=== PATIENT | male | born 1945 | race Caucasian/White ===

== ENCOUNTER 2018-01-18 21:15 | Observation (INO) | payer MEDICARE, OTHER ==
[2018-01-18 22:18] LABS: Troponin I Less than 0.010 ng/mL (< 0.028)
[2018-01-19] MEDS ORDERED: Ondansetron HCl/PF 4 MG/2 ML Vial IVP PRN (00:28)
[2018-01-19] MEDS ORDERED: Ondansetron ODT 4 MG TAB SL PRN (00:28)
[2018-01-19] MEDS ORDERED: Acetaminophen 325 MG TAB PO PRN ×2 (00:28→03:35)
[2018-01-19 00:41] VITALS: BMI 38.9
[2018-01-19 01:18] LABS: Troponin I Less than 0.010 ng/mL (< 0.028)
[2018-01-19] MEDS ORDERED: Nitroglycerin 0.4 MG TAB (25 Tab Bottle) PO PRN (03:35)
[2018-01-19] MEDS ORDERED: Milk Of Magnesia 30 ML UDCUP PO PRN (03:35)
[2018-01-19] MEDS ORDERED: Dextrose 5% in Water 1,000 ML IV PRN (03:35)
[2018-01-19] MEDS ORDERED: Dextrose 50% Abboject 50 ML SYRINGE SLOW IVP PRN (03:35)
[2018-01-19] MEDS ORDERED: clonazePAM 0.5 MG TAB PO PRN (03:35)
[2018-01-19] MEDS ORDERED: Ondansetron ODT 4 MG TAB PO PRN (03:35)
[2018-01-19] MEDS ORDERED: HumaLOG 300 UNITS/3 ML VIAL SC PRN (03:35)
[2018-01-19] MEDS ORDERED: Mag-Al 1200 mg/1200 mg/30 ML UDCUP PO PRN (03:35)
--- NOTE | 2018-01-19 03:55 | HP ---
PRIMARY CARE PHYSICIAN: Dr. Benito Carter at the [facility]. CHIEF COMPLAINT: Chest pain. HISTORY OF PRESENT ILLNESS: Mr. Man is a pleasant 72-year-old gentleman that has a history of hyp ertension, diabetes, and atrial fibrillation. He was in his usual state of health until about 4:00 p .m. He says that he was basically sitting in a chair with feet up when he began having pain in the l eft side of his chest. He says it radiated into his left arm. He rated it about a 5/10. It lasted about an hour and went away spontaneously. He did not have any associated symptoms such as shortness of breath, nausea, vomiting, or diaphoresis. He went to the emergency room in [place], where b y the time he got there, the pain had resolved. However, due to his multiple risk factors he was tra nsferred to our facility for further evaluation. The plan was for him to undergo a stress test. How ever, in further questioning, it was discovered that the patient has already had a stress test about 2 weeks ago at the [facility] in [place] and he says he does not have the results, but they were supposed to s end the results to Dr. Carter. He says that the stress test was not due to any symptoms. It was j ust basically routine and he is not aware of the results. When asked if he tried taking any nitrogly cerin earlier, he says he did not really think about it and he says that the nitroglycerin may actual ly be old. He has had it for at least a year or more. REVIEW OF SYSTEMS: Constitutional: There have been no fevers, chills, no night sweats, no weight lo ss. HEENT: No headaches, no dizziness, no visual changes, no sore throat, rhinorrhea, neck pain, no adenopathy. Pulmonary: No hemoptysis, no cough, no wheezing. Cardiovascular: As stated in the hi story of present illness. Gastrointestinal: No abdominal pain, no nausea, no vomiting, no change in bowels. Genitourinary: No urinary frequency, hematuria, no hesitancy. Neurologic: No focal weakn ess, numbness, no seizures. Psychiatric: No symptoms of anxiety or depression. Skin and Integument : No skin changes. No rash. PAST MEDICAL HISTORY: Significant for hypertension, diabetes mellitus, chronic atrial fibrillation, history of previous hemorrhagic stroke. PAST SURGICAL HISTORY: He has had bilateral carpal tunnel surgery, right foot and back surgery and l ithotripsy. ALLERGIES: No known drug allergies. SOCIAL HISTORY: He is , has two children. He drinks socially. He is a nonsmoker. FAMILY HISTORY: No history of any heritable diseases. MEDICATIONS: Include multivitamin once a day, Protonix 40 mg daily, K-Dur 20 mEq daily, Effexor 75 m g daily, Klonopin 0.5 mg twice a day as needed, metformin 1000 mg twice a day, allopurinol 300 mg erika ly, Lipitor 20 mg at bedtime, multivitamin 1000 mg daily, Flexeril 5 mg twice a day, digoxin 0.25 mg daily, diltiazem 360 mg daily, iron sulfate 325 mg daily, Lasix 40 mg daily, gabapentin 300 mg daily, metoprolol 50 mg twice a day, and Lantus insulin 70 units at bedtime. PHYSICAL EXAMINATION: GENERAL: He is alert and oriented. He appears to be in no acute distress. VITAL SIGNS: Blood pressure was 159/73, heart rate 68, respiratory rate of 20, temperature is 97.5. HEENT: Pupils are equal, round, and reactive. Extraocular muscles are intact. His sclerae anicteri c. Throat: There is no erythema, no exudates. NECK: No adenopathy, no bruits. LUNGS: Clear. No wheezing, no rales. CARDIOVASCULAR: He has a normal S1 and S2. I did not appreciate any S3 or S4. No murmurs, clicks, or rubs. ABDOMEN: Obese, it is soft. There is some mild diffuse tenderness. There is no rebound or guarding . EXTREMITIES: He has got chronic venous stasis changes, some nonpitting edema, palpable dorsalis pedi s pulses. NEUROLOGICALLY: The exam is nonfocal. LABORATORY DATA: EKG was atrial fibrillation, the rate was [address] wave changes. [facility] te blood cell count 6.8, hemoglobin 14.3, hematocrit 43.8, platelet count 142. D-dimer was 0.36. So dium 138, potassium 4.7, chloride is 100, CO2 is 25, BUN of 21, creatinine 1.61, glucose is 111. ASSESSMENT AND PLAN: This is a pleasant 72-year-old gentleman who presented to the emergency room wi th chest pain. He has significant risk factors for coronary artery disease. His initial troponin is negative. The original plan was to rule the patient out and get a stress test to further stratify h is risks for coronary artery disease; however, the patient has recently had a stress test and therefo re we will not repeat this at this time. We will attempt to get the results from the [facility]; however, to [place] is the holiday and it is a possibility that we may not be able to obtain these results. If th is is the case, then if the patient has ruled out and is chest pain free tomorrow or later on today, then likely he can be safely discharged home with a new prescription for Nitrostat, which he can use in the event that he has chest pain in the future and consider a low-dose aspirin along with his othe r medications. Until which time, he can follow up with his primary care physician and get the result s of his stress test. Otherwise, we will continue his usual medications for hypertension and diabete s mellitus as well as sliding scale insulin.
[2018-01-19 05:02] LABS: Troponin I Less than 0.010 ng/mL (< 0.028)
[2018-01-19 06:37] LABS: Troponin I Less than 0.010 ng/mL (< 0.028)
[2018-01-19] MEDS ORDERED: Furosemide 40 MG TAB PO SCH (07:30)
[2018-01-19] MEDS ORDERED: Potassium Chloride 20 MEQ TAB PO SCH (08:00)
[2018-01-19] MEDS ORDERED: metFORMIN 500 MG TAB PO SCH (08:00)
[2018-01-19] MEDS ORDERED: Ferrous Sulfate 325 MG TAB PO SCH (08:00)
[2018-01-19] MEDS ORDERED: Cyclobenzaprine 10 MG TAB PO SCH (09:00)
[2018-01-19] MEDS ORDERED: Cyanocobalamin (Vitamin B-12) 1,000 MCG TAB PO SCH (09:00)
[2018-01-19] MEDS ORDERED: Digoxin 0.25 MG TAB PO SCH (09:00)
[2018-01-19] MEDS ORDERED: Gabapentin 300 MG CAP PO SCH (09:00)
[2018-01-19] MEDS ORDERED: Docusate 100 MG CAP PO SCH (09:00)
[2018-01-19] MEDS ORDERED: Venlafaxine HCl XR 75 MG CAP PO SCH (09:00)
[2018-01-19] MEDS ORDERED: Metoprolol Tartrate 50 MG TAB PO SCH (09:00)
[2018-01-19] MEDS ORDERED: Allopurinol 300 MG TAB PO SCH (09:00)
[2018-01-19] MEDS ORDERED: Multivitamin W/ Minerals 1 TAB PO SCH (09:00)
[2018-01-19 10:00] LABS: Troponin I Less than 0.010 ng/mL (< 0.028)
[2018-01-19 11:38] VITALS: BP 126/74; TEMP 97.5
[2018-01-19] MEDS ORDERED: Atorvastatin Calcium 20 MG TAB PO SCH (21:00)
[2018-01-19] MEDS ORDERED: Insulin Glargine 70 UNITS in Pre-Filled Syringe 1 EACH SC SCH (21:00)
--- NOTE | 2018-01-19 23:12 | DIS ---
DATE OF ADMISSION: 01/19/2018 DATE OF DISCHARGE: 01/19/2018 DISCHARGE DIAGNOSES: 1. Chest pain. 2. Hypertension. 3. Diabetes mellitus. 4. Chronic atrial fibrillation. 5. History of cerebrovascular accident. HISTORY: This patient is a 72-year-old male with the above-mentioned chronic medical conditions, who presented via the emergency department with the complaint of chest pain. The patient reported that the pain lasted for approximately 30 minutes and had some radiation to the left shoulder area. He di d take a nitroglycerin, but believes it is actually quite old. The patient initially presented to [facility] Emergency Department. There, the patient was pain free and had a negative workup. Ho wever, the patient was transferred to this facility, so that he might undergo stress testing. On arr ival, the patient was asymptomatic. He indicated that he had recently had a stress test performed 2 weeks prior at the [facility] in [place]. He did not hear any report on results. HOSPITAL COURSE: The patient was placed in observation. He continued on telemetry and had serial ca rdiac isoenzymes which were negative. He remained asymptomatic throughout. We were unable to obtain his stress test results from the [facility] because of the holiday in the fact that the Medical Records Depa rtment there was closed. Therefore, had the patient get up and ambulate the hallways. He did well w ith that and had no recurrent symptoms. His granddaughter who lives very close to him in fact next d oor, reported that he had had similar symptoms in the past and they typically been quite stable, typi natalie resolved on their own and had not prompted any further aggressive followup. The patient did no t have a PCP established in the [place] area. He intended to follow up with the same physician that his granddaughter was seen. Given the fact that his workup was negative and he had recently had the negative stress test and he remained asymptomatic during his stay. We have discussed the possib ilities of the various options. That included keeping the patient for another day to try to [facility] or repeating the stress test here verus waiting the patient discharged to [facility] ow up with PCP in [place]. Ultimately, we agreed that the patient would be comfortable discharg ing to home with a new prescription for sublingual nitroglycerin to use p.r.n. He can return to the emergency department as needed. DISCHARGE DISPOSITION: The patient will be discharged to home. DISCHARGE MEDICATIONS: He will continue with his usual home medications that include Flomax 0.4 mg q . day, omeprazole 20 mg q. day, digoxin 0.125 q. day, Venlafaxine 150 q. day, insulin glargine 70 uni ts at bedtime, Lopressor 50 b.i.d., gabapentin 300 q. day, Lasix 400 mg p.o. q. day, ferrous sulfate 325 p.o. q. day, diltiazem 360 mg p.o. q. day, Flexeril 5 mg b.i.d., B12 of 1000 mcg p.o. q. day, Lip itor 20 mg at bedtime, allopurinol 300 q. day, Glucophage 1000 mg b.i.d., Klonopin 0.5 mg b.i.d. p.r. n., potassium 20 mEq q. day, multivitamin 1 p.o. q. day, and will additionally have a prescription fo r nitroglycerin 0.4 mg p.o. or sublingual every 5 minutes p.r.n. chest pain. DISCHARGE INSTRUCTIONS: He is to remain on a diabetic heart healthy diet. His activity level is to be modest. He is to establish with his PCP in the [place] area as soon as possible and [facility] he can ascertain results of his stress test. Based on that, they will likely give him guidance for any necessary followup.
== END 2018-01-19 16:22 | disposition home or self-care (01) ==
LOC: ERS 21:15 → 2SW 23:14
PROVIDERS: ADMIT Internal Medicine; ATTEND Internal Medicine
DX: R07.9 Chest pain, unspecified (principal); I10 Essential (primary) hypertension; E11.9 Type 2 diabetes mellitus without complications; I48.2 Chronic atrial fibrillation; Z86.73 Personal history of transient ischemic attack (TIA), and cerebral infarction without residual deficits; Z79.4 Long term (current) use of insulin; Z79.899 Other long term (current) drug therapy
CPT/HCPCS: 36415; 36416; 84484; 93005; 94760; G0378

== ENCOUNTER 2018-03-12 21:35 | Inpatient (IN) | payer MEDICARE, OTHER ==
[~2018-03-12 21:35] MED LIST: ISOVUE-370 76%-LOCM 1 ML ONE
[2018-03-12 22:17] LABS: #Eosinphils 0.1 thou/uL (0.0-0.7); #Lymphocytes 0.8 thou/uL (1.20-3.40); #Monocytes 0.4 thou/uL (0.11-0.59); #Neutrophils 4.7 thou/uL (1.40-6.50); %Basophils 0.1 % (0.0-1.0); %Eosinophils 1.4 % (0.0-10.0); %Lymphocytes 13.8 % (21.0-51.0); %Monocytes 6.7 % (0.0-10.0); Hemoglobin 12.1 g/dL (14.0-18.0); Mean Corpuscular HGB CONC 33.7 g/dL (32.0-36.0); Mean Corpuscular Hemoglobin 30.9 pg (27.0-31.0); Mean Corpuscular Volume 91.7 fL (78.0-98.0); Mean Platelet Volume 7.3 fL (7.4-10.4); Platelet Count 125 thou/uL (130-400); RBC Distribution Width 14.7 % (11.5-14.5); Red Blood Cell (RBC) Count 3.92 mill/uL (4.70-6.10)
[2018-03-12 22:40] LABS: ALT (SGPT) 33 U/L (8-55); AST (SGOT) 35 U/L (5-34); Albumin 3.7 g/dL (3.4-4.8); Alkaline Phosphatase 132 U/L (40-150); Anion Gap 18 mmol/L (10-20); BUN (Urea Nitrogen) 15 mg/dL (8.4-25.7); CK (CPK) 59 U/L (30-200); Calc. Creatinine Clearance 0 mL/min (70-130); Calcium 9.6 mg/dL (7.8-10.44); Carbon Dioxide 22 mmol/L (23-31); Chloride 103 mmol/L (98-107); Estimated GFR-MDRD 47; Globulin 3.2 g/dL (2.4-3.5); Glucose 238 mg/dL (80-115); Lipase 28 U/L (8-78); Potassium 4.8 mmol/L (3.5-5.1); Protein, Total 6.9 g/dL (5.8-8.1); Sodium 138 mmol/L (136-145)
[2018-03-12 22:41] LABS: CKMB 3.6 ng/mL (0-6.6); Troponin I Less than 0.010 ng/mL (< 0.028)
--- NOTE | 2018-03-12 22:47 | RAD ---
PA AND LATERAL CHEST X-RAY 03/12/18 HISTORY: Chest pain for two days which has worsened over the last few hours. COMPARISON: 01/18/18. FINDINGS: The cardiac silhouette and pulmonary vasculature are within normal limits. Lungs are clear. Degenerat gurmeet changes are again seen in the spine with calcification of the anterior longitudinal ligament pres ent. IMPRESSION: No acute cardiopulmonary process. POS: [facility]
[2018-03-12 22:48] LABS: Bilirubin, Total 0.7 mg/dL (0.2-1.2)
--- NOTE | 2018-03-12 23:58 | RAD ---
THREE VIEWS RIGHT FOOT: 03/12/18 HISTORY: Right foot pain after injury. 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 No fracture or dislocation is seen. Posterior and plantar calcanea l enthesophytes are seen. Subcutaneous soft tissue swelling is seen dorsal to the foot primarily the forefoot which was not present on the prior exam. Vascular calcifications are seen at the ankle. Calc ifications are seen adjacent to the plantar aspect of the fifth metatarsal and overlying the region o f the plantar aponeurosis. This is stable from prior exam. There is prominent osteoarthritis involvin g the metatarsophalangeal joints of the fourth and fifth toes and to a lesser extent first metatarsop halangeal joint. IMPRESSION: 1. Stable chronic findings right foot. No acute osseous abnormality is seen. 2. Subcutaneous soft tissue swelling at the dorsal aspect of the foot. POS: [facility]
[2018-03-13] MEDS ORDERED: Piperacillin/Tazobactam 4.5 GM VIAL ONE (00:59)
[2018-03-13 03:01] LABS: Lactic Acid 2.5 mmol/L (0.5-2.2)
[2018-03-13 03:44] LABS: Troponin I Less than 0.010 ng/mL (< 0.028)
[2018-03-13] MEDS ORDERED: Ondansetron HCl/PF 4 MG/2 ML Vial IVP PRN (04:43)
[2018-03-13] MEDS ORDERED: Acetaminophen 325 MG TAB PO PRN (04:43)
[2018-03-13] MEDS ORDERED: Sodium Chloride 0.9% 1,000 ML IV SCH (04:43)
[2018-03-13] MEDS ORDERED: Ondansetron ODT 4 MG TAB SL PRN (04:43)
[2018-03-13 05:55] VITALS: BMI 39.5
[2018-03-13] MEDS ORDERED: Nitroglycerin 2% Ointment 1 INCH/1 GM Packet TOP SCH (06:15)
[2018-03-13 06:37] LABS: Troponin I 0.012 ng/mL (< 0.028)
[2018-03-13] MEDS ORDERED: Piperacillin/Tazobactam 4.5 GM in Sodium Chloride 0.9% 100 ML IVPB SCH (09:00)
--- NOTE | 2018-03-13 10:08 | ULT ---
PRELIMINARY REPORT/[facility]/EMERGENTY AFTER-HOURS PROCEDURE US Duplex Right Lower Extremity Veins CLINICAL HISTORY: 72 years old, male; Pain and signs and symptoms; Edema, localized; Lower extremity, right; Toes; Nilda ent HX: Rt foot pain/edema/redness after injury to toe. TECHNIQUE: Real-time duplex ultrasound scan of the right lower extremity veins integrating B-mode two dimensiona l vascular structure, Doppler spectral analysis, color flow Doppler imaging and compression. COMPARISON: No relevant prior studies available. FINDINGS: No visible clot in the included veins. The included veins appear normally compressible. Duplex Doppler evaluation demonstrates flow in the evaluated veins. IMPRESSION: No evidence of acute right lower extremity DVT. Thank you for allowing us to participate in the care of your patient. Dictated and Authenticated by: Hugo Hughes MD 03/13/2018 1:29 AM Central Time ([place] & [place]) FINAL REPORT RIGHT LOWER EXTREMITY VENOUS DOPPLER: Date: 03/12/18 HISTORY: Lower extremity edema. Swelling. COMPARISON: None. TECHNIQUE: Real-time Alva scale and color Doppler with spectral analysis of the right lower extremity venous sy stem was performed. The common femoral, femoral, proximal portions of greater saphenous and deep femo ral veins, as well as the popliteal and posterior tibial veins were interrogated. Normal flow, augmentation, and compression. IMPRESSION: No deep venous thrombosis. Findings and impression are concordant with the preliminary report by [facility]. POS: [facility]
--- NOTE | 2018-03-13 10:13 | CT ---
PRELIMINARY REPORT/[facility]/EMERGENTY AFTER-HOURS PROCEDURE CT Angiography Chest With Intravenous Contrast CLINICAL HISTORY: 72 years old, male; Pain; Chest pain; Midsternal; TECHNIQUE: Axial computed tomographic angiography images of the chest with intravenous contrast using pulmonary embolism protocol. MIP reconstructed images were created and reviewed. COMPARISON: No relevant prior studies available. FINDINGS: Pulmonary arteries: No evidence for pulmonary embolism Aorta: No acute findings. No thoracic aortic aneurysm. Lungs: Elevated right hemidiaphragm. Mild dependent atelectasis in the lower lobes dorsally. No pneum onia, mass, or edema. Pleural space: No acute findings. No significant effusion. No pneumothorax. Heart: No acute findings. No cardiomegaly. Trace pericardial effusion. No evidence of RV dysfunction. Bones/joints: Chronic degenerative spinal changes without acute fracture or dislocation. Soft tissues: No acute findings. Lymph nodes: No acute findings. No enlarged lymph nodes. Upper abdomen:. Liver is enlarged at 21 cm and demonstrates lobulated cirrhotic morphology. 2 cm live r cyst left lobe. 6 mm low density hepatic lesion on series 2 image 80, too small to characterize but likely cysts as well. Spleen enlarged at 17 cm. IMPRESSION: No pulmonary embolism. No pneumonia, lung mass, or edema. Hepatosplenomegaly with cirrhosis. Thank you for allowing us to participate in the care of your patient. Dictated and Authenticated by: Tracie De Jesus MD 03/13/2018 1:46 AM Central Time ([place] & [place]) FINAL REPORT CT ANGIOGRAM CHEST WITH CONTRAST: Date: 03/12/18 HISTORY: Chest pain. COMPARISON: Chest radiograph from prior day. TECHNIQUE: CT angiogram chest performed after the intravenous administration of contrast. 3D rendering provided. FINDINGS/IMPRESSION: Findings and impression are concordant with the preliminary report by [facility]. POS: [facility]
[2018-03-13] MEDS: Nitroglycerin 2% Ointment 1 INCH/1 GM Packet TOP SCH ×3 (12:22→23:18)
[2018-03-13] MEDS ORDERED: Calcium Carbonate 500 MG ChewTAB PO PRN (14:55)
[2018-03-13] MEDS ORDERED: Dextrose 5% in Water 1,000 ML IV PRN (14:55)
[2018-03-13] MEDS ORDERED: HumaLOG 300 UNITS/3 ML VIAL SC PRN (14:55)
[2018-03-13] MEDS ORDERED: Dextrose 50% Abboject 50 ML SYRINGE SLOW IVP PRN (14:55)
[2018-03-13] MEDS ORDERED: Vancomycin HCl 1 GM in Premix Bag 1 BAG IVPB SCH (15:00)
[2018-03-13] MEDS ORDERED: Pharmacy to Dose UNASYN IVPB PRN (15:00)
[2018-03-13] MEDS: Heparin 5,000 UNITS/ML VIAL SC SCH ×2 (15:35→21:23)
[2018-03-13] MEDS: Clindamycin/D5W 600 MG in Premix Bag 1 BAG IVPB SCH ×2 (16:07→21:37)
[2018-03-13] MEDS: Ampicillin/Sulbactam 3 GM in Sodium Chloride 0.9% 100 ML IVPB SCH ×2 (17:04→22:11)
[2018-03-13] MEDS: Famotidine/PF 20 mg/2ml Vial SLOW IVP SCH (21:20)
[2018-03-14] MEDS: Mag-Al 1200 mg/1200 mg/30 ML UDCUP PO PRN ×3 (01:48→23:39)
[2018-03-14] MEDS: Clindamycin/D5W 600 MG in Premix Bag 1 BAG IVPB SCH ×2 (04:47→08:52)
[2018-03-14] MEDS ORDERED: Clindamycin/D5W 600 mg/50 ml Premix Bag ONE (04:57)
[2018-03-14 05:02] LABS: #Eosinphils 0.1 thou/uL (0.0-0.7); #Lymphocytes 0.8 thou/uL (1.20-3.40); #Monocytes 0.3 thou/uL (0.11-0.59); #Neutrophils 2.9 thou/uL (1.40-6.50); %Basophils 0.6 % (0.0-1.0); %Eosinophils 2.1 % (0.0-10.0); %Lymphocytes 19.5 % (21.0-51.0); %Monocytes 6.8 % (0.0-10.0); Hemoglobin 11.2 g/dL (14.0-18.0); Mean Corpuscular HGB CONC 33.9 g/dL (32.0-36.0); Mean Corpuscular Hemoglobin 30.6 pg (27.0-31.0); Mean Corpuscular Volume 90.1 fL (78.0-98.0); Mean Platelet Volume 7.3 fL (7.4-10.4); Platelet Count 110 thou/uL (130-400); RBC Distribution Width 14.8 % (11.5-14.5); Red Blood Cell (RBC) Count 3.66 mill/uL (4.70-6.10)
[2018-03-14 05:25] LABS: Anion Gap 15 mmol/L (10-20); BUN (Urea Nitrogen) 10 mg/dL (8.4-25.7); Calc. Creatinine Clearance 123 mL/min (70-130); Calcium 9.4 mg/dL (7.8-10.44); Carbon Dioxide 22 mmol/L (23-31); Cardiac Risk 3.7 (Less than 4.5); Chloride 108 mmol/L (98-107); Cholesterol 110 mg/dl (< 200 Desired); Estimated GFR-MDRD 71; Glucose 113 mg/dL (80-115); HDL Cholesterol 30 mg/dL (>60 Neg Risk); LDL Cholesterol, Calculated 60 mg/dL; Potassium 3.9 mmol/L (3.5-5.1); Sodium 141 mmol/L (136-145); Triglycerides 102 mg/dL (Less than 150)
[2018-03-14] MEDS: Ampicillin/Sulbactam 3 GM in Sodium Chloride 0.9% 100 ML IVPB SCH ×2 (05:35→10:26)
[2018-03-14] MEDS: Nitroglycerin 2% Ointment 1 INCH/1 GM Packet TOP SCH ×2 (05:35→11:48)
[2018-03-14] MEDS: Famotidine/PF 20 mg/2ml Vial SLOW IVP SCH (08:52)
[2018-03-14] MEDS: Heparin 5,000 UNITS/ML VIAL SC SCH (08:53)
--- NOTE | 2018-03-14 15:29 | PDOC.PN ---
- Subjective Encounter Start Date: 03/14/18 (f/u chest pain) Encounter Start Time: 15:28 Subjective: Pt reports chest pain with PO - solid and liquids, on a ppi at home -: n/v/abd pain or other changes. Pain in toe - reports he was on keflex and -: clindamycin for 9 days prior to admission - Objective Resuscitation Status: Resuscitation Status FULL:Full Resuscitation Vital Signs & Weight: Vital Signs (12 hours) Temp Pulse Resp BP BP BP Pulse Ox 03/14/18 11:46 98.6 F 91 16 128/65 99 03/14/18 07:46 98.2 F 80 16 97 03/14/18 07:43 98.2 F 80 16 153/70 H 97 03/14/18 03:46 97.9 F 90 19 134/60 95 03/14/18 03:29 97.9 F 101 H 20 150/76 H 98 Weight Admit Weight 291 lb 8 oz Weight 286 lb 6.4 oz I&O: 03/13/18 03/14/18 03/15/18 06:59 06:59 06:59 Intake Total 10 2115 Output Total 300 2600 Balance -290 -485 Result Diagrams: 03/14/18 03:55 03/14/18 03:55 Additional Labs: Accuchecks 03/14/18 03/14/18 03/13/18 10:35 06:09 20:57 POC Glucose 131 H 147 H 189 H 03/13/18 16:34 POC Glucose 236 H EKG Reviewed by me: Yes (tele - a fib 100's) Phys Exam - Physical Examination Constitutional: NAD Respiratory: no wheezing, no rales, no rhonchi, clear to auscultation bilateral Cardiovascular: no significant murmur, irregular Gastrointestinal: soft, non-tender, no distention Musculoskeletal: no edema Neurological: non-focal, moves all 4 limbs Psychiatric: normal affect Deviation from normal: right 2nd toe laceration, with edematous and erythematous toe Dx/Plan (1) Toe infection Code(s): L08.9 - LOCAL INFECTION OF THE SKIN AND SUBCUTANEOUS TISSUE, UNSP Status: Acute (2) Atrial fibrillation Code(s): I48.91 - UNSPECIFIED ATRIAL FIBRILLATION Status: Chronic Qualifiers: Atrial fibrillation type: unspecified Qualified Code(s): I48.91 - Unspecified atrial fibrillation (3) Chest pain Code(s): R07.9 - CHEST PAIN, UNSPECIFIED Status: Acute Qualifiers: Chest pain type: unspecified Qualified Code(s): R07.9 - Chest pain, unspecified (4) DM type 2 (diabetes mellitus, type 2) Status: Chronic Qualifiers: Diabetes mellitus complication status: without complication (5) Dyslipidemia Code(s): E78.5 - HYPERLIPIDEMIA, UNSPECIFIED Status: Chronic (6) HTN (hypertension) Code(s): I10 - ESSENTIAL (PRIMARY) HYPERTENSION Status: Chronic Qualifiers: Hypertension type: essential hypertension Qualified Code(s): I10 - Essential (primary) hypertension (7) Morbid obesity Code(s): E66.01 - MORBID (SEVERE) OBESITY DUE TO EXCESS CALORIES Status: Chronic (8) Pancytopenia Code(s): D61.818 - OTHER PANCYTOPENIA Status: Acute - Plan * chest pain related to PO - start BID PPI and consult GI for consideration of EGD * * toe infectin - pt was on long course of oral abx prior to this admission - will change the unasyn and clindamycin to levaquin for pseudomonas coverage. Wound care managing infection * * reconcilled home meds. * * Hold long acting insulin as blood sugars are controlled. Hold metformin as well * * Pancytopenia - uncertain if new or baseline for patient - monitor. * * dvt prophy & a fib anticoagulation- pt reports hx of hemorrhagic stroke and states he was told no blood thinners at all. Will d/c heparin * gi prophy - not indicated, starting PPI due to chest sx * * code status full * * reviewed plan of care with patient, no questions or further needs at end of eval..
[2018-03-14] MEDS ORDERED: Acetaminophen 325 MG TAB PO PRN (17:34)
[2018-03-14] MEDS: Atorvastatin Calcium 20 MG TAB PO SCH (21:14)
[2018-03-14] MEDS: clonazePAM 0.5 MG TAB PO SCH (21:14)
[2018-03-14] MEDS: Metoprolol Tartrate 100 MG TAB PO SCH (21:15)
--- NOTE | 2018-03-14 21:37 | CON ---
DATE OF CONSULTATION: 03/14/2018 HISTORY OF PRESENT ILLNESS: Patient is a 72-year-old male who presented for chest pain. H e reports whenever he eats or swallows, he has severe chest pain. He underwent an upper endoscopy. He is not sure of the reason why, but he was not having the symptoms. These symptoms one year ago an d it was reportedly normal. He has had this chest pain since yesterday. He says he cannot eat or dr ink anything and it will cause the pain. He has had no vomiting. He denies any weight loss. He den ies any melena or hematochezia. PAST MEDICAL HISTORY: Includes gout, coronary artery disease, congestive heart failure, arrhythmia, atrial fibrillation, not on any anticoagulation because of an intracerebral hemorrhage, diabetes michael itus, gastroesophageal reflux, hypertension, hemorrhagic cerebrovascular accident. PAST SURGICAL HISTORY: Includes carpal tunnel, lithotripsy, foot surgery. SOCIAL HISTORY: He drinks occasionally. Does not smoke. ALLERGIES: No known allergies. MEDICATIONS: Include allopurinol 100 mg p.o. t.i.d., atorvastatin 20 mg 1 p.o. at bedtime, clonazepa m 0.5 mg 1 p.o. b.i.d., vitamin B12 1 p.o. daily, cyclobenzaprine two p.o. every day p.r.n., diltiaze m 360 mg 1 p.o. daily, Feosol 325 one p.o. daily, Lasix 40 mg 1 p.o. daily, gabapentin 300 mg 1 p.o. daily, insulin, metformin 500 mg 1 p.o. b.i.d., metoprolol 25 mg 1 p.o. b.i.d., omeprazole 20 mg 1 p. o. daily, potassium chloride 20 mEq 1 p.o. daily, venlafaxine 75 mg 1 p.o. daily, Keflex 500 mg 1 p.o . t.i.d., clindamycin 300 mg 1 p.o. q.i.d. ALLERGIES: No known allergies. FAMILY HISTORY: Negative for GI or liver disease. REVIEW OF SYSTEMS: CONSTITUTIONAL: No fever, chills, no weight loss. EYES: No blurred vision or d ouble vision. ENT: No sore throat or earaches. CARDIOVASCULAR: No chest pain or palpitation. PUL MONARY: No shortness of breath, cough or wheezing. GASTROINTESTINAL: See above. : No hematuria or dysuria. MUSCULOSKELETAL: No joint pain or muscle weakness. SKIN: No rashes. NEUROLOGIC: No numbness or seizure activity. PHYSICAL EXAMINATION: GENERAL: Shows an obese white male in no acute distress. VITAL SIGNS: Temperature 97.8, pulse 79, respiratory rate 16, blood pressure 139/84. HEENT: Unremarkable. NECK: Supple. CHEST: Clear. CARDIOVASCULAR: Regular rate and rhythm. ABDOMEN: Soft and nontender without organomegaly or masses. Bowel sounds are present and normoactiv e. RECTAL: Deferred. EXTREMITIES: Normal. LABORATORY DATA: Shows white blood cell count 4.0, hemoglobin 11.2, hematocrit 33.0, platelet count 110. Admission chemistry panel showed creatinine 1.49, glucose 239. ASSESSMENT: 1. Odynophagia. 2. Diabetes mellitus. 3. History gastroesophageal reflux disease. 4. Coronary artery disease. RECOMMENDATIONS: 1. EGD tomorrow. 2. Continue proton-pump inhibitor.
--- NOTE | 2018-03-14 22:38 | PDOC.EVN ---
Event Note - Event Note Event Note: H&P RE-DICTATION confirmatioin # [id number]
[2018-03-15 04:17] LABS: Anion Gap 13 mmol/L (10-20); BUN (Urea Nitrogen) 9 mg/dL (8.4-25.7); Calc. Creatinine Clearance 121 mL/min (70-130); Calcium 9.3 mg/dL (7.8-10.44); Carbon Dioxide 23 mmol/L (23-31); Chloride 106 mmol/L (98-107); Estimated GFR-MDRD 71; Glucose 114 mg/dL (80-115); Potassium 3.9 mmol/L (3.5-5.1); Sodium 138 mmol/L (136-145)
[2018-03-15 04:24] LABS: #Eosinphils 0.1 thou/uL (0.0-0.7); #Lymphocytes 0.7 thou/uL (1.20-3.40); #Monocytes 0.3 thou/uL (0.11-0.59); #Neutrophils 3.1 thou/uL (1.40-6.50); %Basophils 0.3 % (0.0-1.0); %Eosinophils 2.9 % (0.0-10.0); %Neutrophils 72.8 % (42.0-75.0); Hemoglobin 11.6 g/dL (14.0-18.0); Mean Corpuscular HGB CONC 34.2 g/dL (32.0-36.0); Mean Corpuscular Hemoglobin 30.7 pg (27.0-31.0); Mean Corpuscular Volume 89.8 fL (78.0-98.0); Platelet Count 115 thou/uL (130-400); RBC Distribution Width 14.7 % (11.5-14.5); Red Blood Cell (RBC) Count 3.76 mill/uL (4.70-6.10); White Blood Cell (WBC) Count 4.3 thou/uL (4.8-10.8)
[2018-03-15] MEDS ORDERED: Promethazine HCl 25 MG/ML VIAL SLOW IVP PRN (09:53)
[2018-03-15] MEDS ORDERED: Promethazine HCl 25 MG/ML VIAL IM PRN (09:53)
[2018-03-15] MEDS ORDERED: Ondansetron HCl/PF 4 MG/2 ML Vial IVP PRN (09:53)
--- NOTE | 2018-03-15 10:38 | HP ---
PRIMARY CARE PHYSICIAN: Dr. Carter. CHIEF COMPLAINT: Chest pain. HISTORY OF PRESENT ILLNESS: This is a 72-year-old male with a known history of obesity, hypertension , hyperlipidemia, type 2 diabetes on insulin; atrial fibrillation and congestive heart failure and pr ior coronary artery disease who presents with a chief complaint of chest pain. Patient was being at the [employer], walking across to the parking lot, which is at f urther distant and he usually ambulates when he started having substernal chest discomfort. He then proceeded to go to the medical attention station that was on site and they instructed him to best see k further medical attention. The patient subsequently went home where the chest pain persisted and a ctually got worse. He subsequently came to the Emergency Department. At the time of my evaluation, the patient is currently on an inpatient status and he no longer has the substernal chest pain. Patient states that he thinks he knows what is going on since being in the hospital, he has noticed t hat the substernal chest pain recurs everytime he eats. He says the pain is worse with solid foods v ersus liquid foods, but is also still present with any sort of liquid intake. He can feel the liquid passing down through his mouth on the back of his throat. He feels that when it is somewhere in the middle of his esophagus that is where he starts having a substernal pressure, that also has a burnin g component. It does not appear to radiate to the side to the left or down his left arm. No diaphor etic episodes. No palpitations. No shortness of breath with these episodes either. REVIEW OF SYSTEMS: As per HPI. CONSTITUTIONAL: No recent illness, no recent weight or gain or loss in the last 2 months. No fevers, no chills. HEENT: No dizziness, headache or vision changes. CAR DIOVASCULAR: As described above. RESPIRATORY: Dyspnea with exertion. Easy fatigability. No cough , no congestion. No recent upper respiratory infection. GASTROINTESTINAL: No nausea, no vomiting, no abdominal pain, no issues with diarrhea or constipation. MUSCULOSKELETAL: No new myalgias or art hralgias. Patient does note that he has been receiving antibiotics for a toe infection that he has b een taking for the last week, but he has not noticed any new changes to that area. Remainder of the review of systems is otherwise negative. PAST MEDICAL HISTORY: Includes coronary artery disease, congestive heart failure, atrial fibrillatio n, type 2 diabetes insulin-dependent, gastroesophageal reflux disease, hypertension, hyperlipidemia, obesity, and obstructive sleep apnea. PAST SURGICAL HISTORY: 1. Status post right foot surgery. 2. Status post bilateral carpal tunnel release. 3. Status post back surgery. 4. Status post stress test. The patient states approximately a month ago through the [facility], the result s of which he is not aware. 5. Status post EGD and colonoscopy within the past year. He states that he is told he has polyps, b ut is not aware of any other further abnormalities. HOME MEDICATIONS: Please see the EMR for full details. His current list includes the following: Al lopurinol 100 mg p.o. t.i.d., atorvastatin 20 mg p.o. daily. clonazepam 0.5 mg p.o. b.i.d., vitamin B 12 1000 mcg daily, cyclobenzaprine 10 mg p.o. p.r.n., diltiazem 360 mg p.o. daily, Feosol 325 mg p.o. daily, furosemide 40 mg p.o. daily, gabapentin 300 mg p.o. daily, Lantus 90 units subcutaneously onc e a day, metformin 500 mg p.o. b.i.d., metoprolol tartrate 25 mg p.o. b.i.d., omeprazole 20 mg p.o. d aily, potassium chloride 20 mEq p.o. daily, venlafaxine 75 mg p.o. daily, Keflex 500 mg p.o. t.i.d., clindamycin 300 mg p.o. q.i.d. ALLERGIES: No known drug allergies. SOCIAL HISTORY: The patient resides home alone. He has a pet whom he denies as being a "biter or sc ratcher or licker". Denies any tobacco or illicit drug use and very occasional alcohol use only. He is a and receives the bulk of his care through the [facility]. PHYSICAL EXAMINATION: GENERAL: The patient is awake, alert, conversant, and a reasonable historian. HEENT: Normocephalic, atraumatic. Slightly dry mucous membranes. Ocular motions are intact. CARDIOVASCULAR: S1, S2. Pulses 2+ bilateral upper extremities, 2+ bilateral pitting pedal edema. RESPIRATORY: Reasonable air movement. No wheezes, rales or rhonchi. No crackles. Grossly clear to auscultation. ABDOMEN: Positive bowel sounds, soft, nontender to palpation. MUSCULOSKELETAL: Moving all 4 extremities equally. LABORATORY DATA: WBC 6.0, hemoglobin 12.1, hematocrit 36.0, platelets 125. D-dimer 0.7, sodium 138, potassium 4.8, chloride 103, bicarbonate 22, anion gap 18, BUN 15, creatinine 1.47, glucose 238. La ctic acid initially was 3.5, down to 2.5, calcium 9.6, total bilirubin 0.7, AST 35, ALT 33, alkaline phosphatase 132, creatinine kinase 59, CRP 1.72, lipase 28, total protein 6.9, albumin 3.7. IMAGING DATA: CTA of the chest findings, no evidence for pulmonary embolism. No acute findings of t he aorta. No thoracic aortic aneurysm. Lungs; elevated right diaphragm, mild dependent atelectasis in the lower lobes dorsally. No pneumonia, mass, or edema, pleural space with no acute findings. No significant effusion, no pneumothorax. Heart, no acute findings, no cardiomegaly, trace pericardial effusion, no evidence of RV dysfunction. Bones and joints; chronic degenerative spinal changes with out acute fracture or dislocation. Soft tissues; no acute findings. Lymph nodes; no acute findings. No enlarged lymph nodes. Upper abdomen; liver is enlarged at 21 cm and demonstrates lobulated cirr hotic morphology, 2 cm liver cyst left lobe, 6 mm low density hepatic lesion on small to charac terize, but likely cyst as well. Spleen enlarged at 17 cm. ASSESSMENT AND PLAN: 1. A 72-year-old male who presented with chief complaint of chest pain, had one chest pain. [facility] We will attempt to find records for this recent stress test. Trend serial troponins. Maintain on telemetry and recheck an EKG. It is possible willian t the patient's symptoms are due to a gastrointestinal etiology, but would like to rule out cardiac i ssues first as the patient is actually at high risk for such. 2. History of congestive heart failure, appears to be stable at this point in time. 3. Insulin-dependent diabetes. We will continue the patient on his home regimen. 4. Elevated creatinine. Of note, this appears to be close to the patient's baseline. We will viv nue to closely monitor. 5. Question of cirrhosis. The patient's hepatic morphology on imaging certainly appears to be consi stent with cirrhosis. Unclear whether or not this is a known longstanding diagnosis or not. 6. I will decrease platelets, likely secondary to cirrhosis as above. 7. Prior history of colonoscopy and EGD. We will also [facility] to [facility] these [facility] as we ll. Unclear what the EGD indication was for the patient at this point in time as he thought that bot h were routine screening testing. 8. Diet as tolerated, cardiac as tolerated. 9. DVT prophylaxis with heparin. Thank you for asking me to care for the patient. Questions or concerns, contact me at [facility].
--- NOTE | 2018-03-15 10:40 | OP ---
DATE OF PROCEDURE: 03/15/2018 PREOPERATIVE DIAGNOSIS: Odynophagia. DESCRIPTION OF PROCEDURE: After informed consent was obtained, the patient was placed in the left la teral decubitus position. Anesthesia was administered per the Anesthesia Department. Forward-viewin g endoscope was inserted into the esophagus under direct visualization with ease and passed to the se cond portion of the duodenum with ease. Second portion of the duodenum and duodenal bulb were normal . The pylorus was normal. In the prepyloric antrum, a large polyp was noted. This polyp appeared s omewhat hyperplastic. Biopsies were taken of this polyp. Also in the antrum was a large submucosal mass and overlying this mass with some polypoid mucosa. The mass and polypoid mucosa were biopsied a s well and placed in a separate container. Retroflexion in the stomach was normal. In the esophagus from 35-32 cm, there was a 3 cm segment of circumferential ulceration with normal esophageal mucosa distally and proximally. Biopsies were taken. ASSESSMENT: 1. Antral polyp - status post polypectomy. 2. Submucosal mass with overlying polypoid mucosa - status post biopsy. 3. Circumferential ulceration involving the esophagus from 35-32 cm with normal mucosa, both distall y and proximally - status post biopsy, pill esophagitis? 4. Otherwise normal esophagogastroduodenoscopy. RECOMMENDATIONS: 1. PPI. 2. Histopath. 3. Viscous lidocaine.
[2018-03-15] MEDS: Allopurinol 300 MG TAB PO SCH (11:29)
[2018-03-15] MEDS: clonazePAM 0.5 MG TAB PO SCH ×2 (11:30→20:40)
[2018-03-15] MEDS: Potassium Chloride 20 MEQ TAB PO SCH (11:30)
[2018-03-15] MEDS: Metoprolol Tartrate 100 MG TAB PO SCH ×2 (11:30→20:41)
[2018-03-15] MEDS: Gabapentin 300 MG CAP PO SCH (11:30)
[2018-03-15] MEDS: Lidocaine Viscous Sol 2% 15 ml UD Cup SSW SCH ×2 (11:31→15:36)
[2018-03-15] MEDS: Furosemide 40 MG TAB PO SCH (11:31)
[2018-03-15] MEDS: Venlafaxine HCl XR 150 MG CAP PO SCH (11:31)
--- NOTE | 2018-03-15 14:36 | PDOC.PN ---
- Subjective Encounter Start Date: 03/15/18 (f/u ches tpain) Encounter Start Time: 14:35 Subjective: Pt s/p egd today with ulceration identified. Reports this is controlled -: states pain in right 2nd toe is improved, however more red today - Objective Resuscitation Status: Resuscitation Status FULL:Full Resuscitation Vital Signs & Weight: Vital Signs (12 hours) Temp Pulse Resp BP BP Pulse Ox 03/15/18 10:50 98.1 F 84 16 152/68 H 100 03/15/18 08:26 98.0 F 72 18 166/75 H 99 03/15/18 03:31 98.3 F 72 18 156/65 H 97 Weight Admit Weight 291 lb 8 oz Weight 287 lb 12.8 oz I&O: 03/14/18 03/15/18 03/16/18 06:59 06:59 06:59 Intake Total 2115 1440 Output Total 2600 925 520 Balance -485 515 -520 Result Diagrams: 03/15/18 03:18 03/15/18 03:18 Additional Labs: Accuchecks 03/15/18 03/15/18 03/14/18 10:54 06:00 20:07 POC Glucose 113 H 119 H 100 03/14/18 16:18 POC Glucose 148 H EKG Reviewed by me: Yes (tele - a fib with brief rvr yesterday, otherwise 70's) Phys Exam - Physical Examination Constitutional: NAD Respiratory: no wheezing, no rales, no rhonchi, clear to auscultation bilateral Cardiovascular: no significant murmur, irregular Gastrointestinal: soft, non-tender, no distention, positive bowel sounds Musculoskeletal: no edema Deviation from normal: right 2nd toe - increasing erythema and now violaceous appearance, -: laceration present and nail partially detached Dx/Plan (1) Toe infection Code(s): L08.9 - LOCAL INFECTION OF THE SKIN AND SUBCUTANEOUS TISSUE, UNSP Status: Acute (2) Atrial fibrillation Code(s): I48.91 - UNSPECIFIED ATRIAL FIBRILLATION Status: Chronic Qualifiers: Atrial fibrillation type: unspecified Qualified Code(s): I48.91 - Unspecified atrial fibrillation (3) Chest pain Code(s): R07.9 - CHEST PAIN, UNSPECIFIED Status: Acute Qualifiers: Chest pain type: unspecified Qualified Code(s): R07.9 - Chest pain, unspecified (4) DM type 2 (diabetes mellitus, type 2) Status: Chronic Qualifiers: Diabetes mellitus complication status: without complication (5) Dyslipidemia Code(s): E78.5 - HYPERLIPIDEMIA, UNSPECIFIED Status: Chronic (6) HTN (hypertension) Code(s): I10 - ESSENTIAL (PRIMARY) HYPERTENSION Status: Chronic Qualifiers: Hypertension type: essential hypertension Qualified Code(s): I10 - Essential (primary) hypertension (7) Morbid obesity Code(s): E66.01 - MORBID (SEVERE) OBESITY DUE TO EXCESS CALORIES Status: Chronic (8) Pancytopenia Code(s): D61.818 - OTHER PANCYTOPENIA Status: Acute (9) Esophageal ulceration Code(s): K22.10 - ULCER OF ESOPHAGUS WITHOUT BLEEDING Status: Acute - Plan * Toe with worsening erythema and now violaceous - concerning for worsening infection. Consult gen surgery * antibiotics changed to levaquin yesterday for pseudomonas coverage - will d/c this and change to cefepime * * s/p egd with esophageal ulceration - source of pain. continue ppi and viscous lidocaine prior to meals * * continue other meds as ordered. Pt's blood sugars are well controlled without long-acting insulin. he takes 70 units of lantus at night - hold on this as I'm concerned for hypoglycemia * * a fib rate controlled - pt asx. * * dvt prophy - scd's as tolerated. Pt with hx of hemorrhagic stroke, and reports no anticoag/blood thinners of any kind lifelong. * gi prophy- on ppi for ulceration * * code status full * * pt was hoping to go home today, however agrees to stay given the worsening appearance of toe. No quesitons or further needs. He remains at high risk in current condition..
[2018-03-15] MEDS: Cefepime 2 GM in Sodium Chloride 0.9% 100 ML IVPB SCH (15:32)
[2018-03-15] MEDS ORDERED: PROPOFOL 200 MG/20 ML VIAL ONE (16:03)
[2018-03-15] MEDS ORDERED: Lidocaine 1% PF 5 ML VIAL ONE (16:03)
[2018-03-15] MEDS: Atorvastatin Calcium 20 MG TAB PO SCH (20:40)
[2018-03-16] MEDS: Cefepime 2 GM in Sodium Chloride 0.9% 100 ML IVPB SCH ×2 (02:49→15:10)
[2018-03-16 04:49] LABS: #Eosinphils 0.1 thou/uL (0.0-0.7); #Lymphocytes 0.9 thou/uL (1.20-3.40); #Monocytes 0.3 thou/uL (0.11-0.59); #Neutrophils 2.9 thou/uL (1.40-6.50); %Basophils 0.4 % (0.0-1.0); %Lymphocytes 20.8 % (21.0-51.0); %Monocytes 7.6 % (0.0-10.0); %Neutrophils 68.1 % (42.0-75.0); Hemoglobin 12.2 g/dL (14.0-18.0); Mean Corpuscular HGB CONC 34.5 g/dL (32.0-36.0); Mean Corpuscular Hemoglobin 31.1 pg (27.0-31.0); Mean Corpuscular Volume 90.1 fL (78.0-98.0); Mean Platelet Volume 6.9 fL (7.4-10.4); Platelet Count 116 thou/uL (130-400); RBC Distribution Width 14.6 % (11.5-14.5); Red Blood Cell (RBC) Count 3.92 mill/uL (4.70-6.10); White Blood Cell (WBC) Count 4.3 thou/uL (4.8-10.8)
[2018-03-16 05:03] LABS: Anion Gap 12 mmol/L (10-20); BUN (Urea Nitrogen) 8 mg/dL (8.4-25.7); Calc. Creatinine Clearance 108 mL/min (70-130); Calcium 9.2 mg/dL (7.8-10.44); Carbon Dioxide 24 mmol/L (23-31); Chloride 107 mmol/L (98-107); Estimated GFR-MDRD 62; Glucose 123 mg/dL (80-115); Sodium 139 mmol/L (136-145)
[2018-03-16] MEDS: Allopurinol 300 MG TAB PO SCH (08:32)
[2018-03-16] MEDS: Furosemide 40 MG TAB PO SCH (08:32)
[2018-03-16] MEDS: Potassium Chloride 20 MEQ TAB PO SCH (08:32)
[2018-03-16] MEDS: clonazePAM 0.5 MG TAB PO SCH (08:32)
[2018-03-16] MEDS: Lidocaine Viscous Sol 2% 15 ml UD Cup SSW SCH ×3 (08:32→16:32)
[2018-03-16] MEDS: Gabapentin 300 MG CAP PO SCH (08:32)
[2018-03-16] MEDS: Venlafaxine HCl XR 150 MG CAP PO SCH (08:33)
[2018-03-16] MEDS: Metoprolol Tartrate 100 MG TAB PO SCH (08:33)
--- NOTE | 2018-03-16 11:07 | PRG ---
DATE OF SERVICE: 03/16/2018 SUBJECTIVE: The patient is able to tolerate oral liquid with his viscous lidocaine. He is having no pain when he swallows. OBJECTIVE: VITAL SIGNS: Temperature 97.9, pulse 81, respiratory rate 18, blood pressure 165/71. CHEST: Clear. CARDIOVASCULAR: Regular rate and rhythm. ABDOMEN: Benign. LABORATORY DATA: Shows a white blood cell count 4.3, hemoglobin 12.2, hematocrit 35.3. Chemistries show a BUN 8, glucose 123. Pathology is pending. ASSESSMENT: 1. Esophageal ulceration of the mid esophagus consistent with pill esophagitis. 2. Antral polyp. RECOMMENDATIONS: 1. Advance diet. 2. Continue viscous lidocaine. 3. Proton-pump inhibitor. 4. Stable for discharge from GI standpoint. 5. Outpatient follow up in the outpatient setting to review pathology.
--- NOTE | 2018-03-16 12:52 | PDOC.PN ---
- Subjective Encounter Start Date: 03/16/18 Encounter Start Time: 13:00 -: old records requested/rev Pt seen and exmained, chart reviewed in its entirety, this si my first visit with this patient No further CP, no SOB, no F/c, no N/V/d/C All systems reviewed and neg x as above - Objective Resuscitation Status: Resuscitation Status FULL:Full Resuscitation Vital Signs & Weight: Vital Signs (12 hours) Temp Pulse Resp BP BP Pulse Ox 03/16/18 12:00 97.7 F 81 18 140/69 99 03/16/18 08:00 97.9 F 81 18 165/71 H 97 03/16/18 03:48 97.2 F L 67 17 162/75 H 95 Weight Admit Weight 291 lb 8 oz Weight 280 lb I&O: 03/15/18 03/16/18 03/17/18 06:59 06:59 06:59 Intake Total 1440 300 Output Total 925 520 Balance 515 -220 Result Diagrams: 03/16/18 04:00 03/16/18 04:00 Additional Labs: Accuchecks 03/16/18 03/16/18 03/15/18 10:40 05:48 21:00 POC Glucose 131 H 121 H 132 H 03/15/18 03/15/18 16:44 10:54 POC Glucose 131 H 113 H Dx/Plan - Plan * .
[2018-03-16] MEDS ORDERED: Lidocaine 1% (PF) 30 ML VIAL ONE (15:01)
[2018-03-16 16:31] VITALS: BP 163/79; TEMP 98.7
[2018-03-16] MEDS ORDERED: Bacitracin Zinc 1 Packet TOP SCH (21:00)
--- NOTE | 2018-03-17 00:33 | CON ---
DATE OF CONSULTATION: 03/16/2018 REASON FOR CONSULT: Right second toe injury. HISTORY OF PRESENT ILLNESS: Mr. Man is a 72-year-old man who cut his right second toe on a metal piece of his mobile home door 3 weeks ago. He went to the emergency room and they cleaned and dresse d the wound and gave him some antibiotics, but it still has not healed. He came back to the emergenc y room a few days ago because of chest pain. He was admitted and ruled out for MD, but was found to have some erosions in his esophagus and felt to likely have chest pain resulting from reflux. He has not had any fevers or chills, nausea or vomiting and has not had any drainage from the toe, although it has been a little red. He denies any significant pain in his toes and does not have very good se nsation. PAST MEDICAL HISTORY: Coronary artery disease; heart failure; atrial fibrillation; diabetes, which i s now insulin-dependent; reflux; hypertension; hyperlipidemia; obesity; obstructive sleep apnea; and gout. PAST SURGICAL HISTORY: Rotator cuff surgery, back surgery, carpal tunnel, right first toe surgery fo llowing an injury, and upper and lower endoscopies. OUTPATIENT MEDICATIONS: Include allopurinol, atorvastatin, clonazepam, vitamin B12, cyclobenzaprine, diltiazem, Feosol, Lasix, gabapentin, Lantus, metformin, metoprolol, omeprazole, potassium, venlafax ine, Keflex, and clindamycin. INPATIENT MEDICATIONS: Include allopurinol, atorvastatin, cefepime, clonazepam, Lasix, gabapentin, s liding scale insulin, metoprolol, pantoprazole, potassium, venlafaxine and he has also been on clinda mycin and Zosyn during this hospital admission. LABORATORY DATA: White count is normal at 4.3. Potassium is stable at 35, platelets slightly low at 116, but also stable. He did have a light weight shift when he came in. Sed rate was normal. Elec trolytes are unremarkable. Blood sugars have ranged from 110-131, hemoglobin A1c was 7. C-reactive protein was slightly elevated at 1.72, troponins were all low. X-RAYS: Right foot x-ray shows no acute osseous abnormality and some soft tissue swelling of the for efoot. PHYSICAL EXAMINATION: VITAL SIGNS: Patient is afebrile with normal vital signs except for moderate elevation of blood pres sure to 163/79. GENERAL: Reveals a pleasant man in no acute distress with a full [place]. HEENT: Unremarkable. NECK: Supple without lymphadenopathy or thyroid nodules. HEART: Regular in its rate and rhythm without murmurs, rubs, or gallops. LUNGS: Clear to auscultation bilaterally. ABDOMEN: Soft, nontender, and nondistended. EXTREMITIES: Warm and well perfused with normal dorsalis pedis and posterior tibial pulses. No foot injuries or ulcerations on the left. On the right, he has a cut across the nail, completely transec ting the nail from the nail bed. This is down to the subcutaneous tissues, but does not appear to ex tend to the distal phalanx. There is no expressible purulence. The toe is slightly red, but not par ticularly swollen. ASSESSMENT: Chronic wound to the right second toe, which does not appear to extend down to the bone. This should heal with conservative wound management. However, I do recommend removal of the toenai l remnant as this makes it difficult to clean and care for this wound. It is detached from the matri x of the nail bed and will be disconnected from the nail which will eventually regrow. Patient was i n agreement with this plan and his nail was removed as detailed below. 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 I can see him back in a coupl e of weeks. In the meantime, he is to clean the wound daily with soap and water, dry gently, and pedrito ly bacitracin to the nail bed and to the cut in his toe and he is to keep it wrapped in dry gauze. I f he develops worsening redness or drainage, he should call immediately for another appointment.
== END 2018-03-16 19:30 | disposition home or self-care (01) | DRG 392 ==
LOC: ERS 21:35 → 2NO 03-13 03:00
PROVIDERS: ADMIT Hospitalist; ATTEND Hospitalist
PROC: 0DB28ZX Excision of Middle Esophagus, Via Natural or Artificial Opening Endoscopic, Diagnostic (ICD-10-PCS; principal; 2018-03-15)
PROC: 0HDRXZZ Extraction of Toe Nail, External Approach (ICD-10-PCS; 2018-03-16)
DX: K21.9 Gastro-esophageal reflux disease without esophagitis (principal); D61.818 Other pancytopenia; K22.10 Ulcer of esophagus without bleeding; I48.91 Unspecified atrial fibrillation; Z79.01 Long term (current) use of anticoagulants; E11.9 Type 2 diabetes mellitus without complications; Z79.4 Long term (current) use of insulin; E66.01 Morbid (severe) obesity due to excess calories; J33.8 Other polyp of sinus; G47.33 Obstructive sleep apnea (adult) (pediatric); I25.10 Atherosclerotic heart disease of native coronary artery without angina pectoris; I11.0 Hypertensive heart disease with heart failure; I50.9 Heart failure, unspecified; E78.5 Hyperlipidemia, unspecified; K74.60 Unspecified cirrhosis of liver; L08.9 Local infection of the skin and subcutaneous tissue, unspecified; W45.8XXD Other foreign body or object entering through skin, subsequent encounter; W22.8XXD Striking against or struck by other objects, subsequent encounter; S91.21 Laceration without foreign body of toe with damage to nail
CPT/HCPCS: 36415; 36416; 71046; 71275; 80048; 80053; 80061; 82550; 82553; 83036; 83605; 83690; 84484; 85025; 85379; 85652; 86140; 87040; 88305; 88312; 88313; 93005; 93010; 94760; 96361; 96365; 96367; A4216; J0295; J0692; J1644; J2001; J2543; J2704; J3370; J3490; J7050; S0028